=== PATIENT | male | born 1975 | race Caucasian/White ===

== ENCOUNTER 2018-12-01 16:37 | Emergency (ER) | payer OTHER ==
[~2018-12-01] VITALS: Ht 157.5 cm; Wt 84.8 kg
[2018-12-01 16:47] VITALS: BP_SYST 150
--- NOTE | 2018-12-01 16:55 | NUR ---
Patient to ER bed 03 to gown for evaluation. Side rails up.
--- NOTE | 2018-12-01 16:57 | NUR ---
Pt brought by self , A&Ox4, pt presents to ER with LAC on L upper leg after he cut it with a sheet metal, afebrile, bleeding controlled at this time, pt unable to remember last Tetanus shot administration.
--- NOTE | 2018-12-01 17:03 | NUR ---
SACHIN Lerner examining patient.
[2018-12-01] MEDS ORDERED: IBUPROFEN 600 MG TABLET PO ONE (17:15)
[2018-12-01] MEDS ORDERED: LIDOCAINE/EPI 2% 1:100000 20 ML VIAL INJ ONE (17:15)
[2018-12-01] MEDS ORDERED: BACITRACIN 1 GM OINT TP ONE (17:15)
[2018-12-01] MEDS ORDERED: DIPH-TET-PERTUS Vaccine 0.5 ML VIAL (ADACEL) I.M. ONE (17:15)
--- NOTE | 2018-12-01 17:55 | NUR ---
Patient has a laceration to left lower anterior leg. [employer]EE[employer] HEL[employer] Eduarda applied sutures using sterile technique. Edges well approximated. Dressing applied to site. No bleeding noted. Pt tolerated well.
[2018-12-01 18:27] VITALS: BP_SYST 148
--- NOTE | 2018-12-01 18:28 | NUR ---
Patient given written and verbal discharge instructions and verbalizes understanding. ER MD discussed with patient the results and treatment provided. Patient in stable condition. ID arm band removed. Rx of Keflex, Ibuprofen, Bacitracin given. Patient educated on pain management and to follow up with PMD. Pain Scale 3/10 tolerable for patient . Opportunity for questions provided and answered. Medication side effect fact sheet provided.
== END 2018-12-01 18:27 | disposition home or self-care (01) ==
LOC: SED 16:37
DX: S81.812A Laceration without foreign body, left lower leg, initial encounter (principal); F17.210 Nicotine dependence, cigarettes, uncomplicated; R03.0 Elevated blood-pressure reading, without diagnosis of hypertension; W45.8XXA Other foreign body or object entering through skin, initial encounter; Y93.89 Activity, other specified; Y92.69 Other specified industrial and construction area as the place of occurrence of the external cause; Y99.0 Civilian activity done for income or pay
CPT/HCPCS: 73590-TC; 90715; 99283

== ENCOUNTER 2018-12-03 09:53 | Emergency (ER) | payer OTHER ==
[~2018-12-03] VITALS: Ht 157.5 cm; Wt 83.9 kg
[2018-12-03 09:53] VITALS: BP_SYST 137
--- NOTE | 2018-12-03 09:53 | NUR ---
BROUGHT BACK TO BED #5 AND TRIAGED.REPORT GIVEN TO DARLENE
--- NOTE | 2018-12-03 10:05 | NUR ---
Patient presented to ER with wound check. Patient states he was seen here [facility] ER saturday for a left leg laceration. Patient A&Ox4, ambulatory with crutches, denies N/V/D, pain 05/18
--- NOTE | 2018-12-03 10:30 | NUR ---
ER Dr. Gandhi at bedside examining patient.
--- NOTE | 2018-12-03 10:34 | NUR ---
Applied bacitracin to suture site. Site measures approximately 3 cm . Telfa dressing applied secured with coban
[2018-12-03 10:40] VITALS: BP_SYST 137
--- NOTE | 2018-12-03 10:40 | NUR ---
Patient given written and verbal discharge instructions and verbalizes understanding. ER MD discussed with patient the results and treatment provided. Patient in stable condition. ID arm band removed. No Rx given. Patient educated on pain management and to follow up with PMD. Pain Scale 0/10. Opportunity for questions provided and answered. Medication side effect fact sheet provided.
== END 2018-12-03 10:40 | disposition home or self-care (01) ==
LOC: SED 09:53
DX: S81.812D Laceration without foreign body, left lower leg, subsequent encounter (principal); X58.XXXD Exposure to other specified factors, subsequent encounter
CPT/HCPCS: 99282; 99283

== ENCOUNTER 2018-12-07 14:39 | Emergency (ER) | payer OTHER ==
[~2018-12-07] VITALS: Ht 160 cm; Wt 83.9 kg
[2018-12-07 14:45] VITALS: BP_SYST 137
[2018-12-07 15:49] LABS: EOSINOPHILS # (AUTO) 0.3 K/uL (0.0-0.4); EOSINOPHILS % (AUTO) 4.3 % (0.0-4.0); HEMATOCRIT 41.6 % (36-54); HEMOGLOBIN 13.4 g/dL (14.0-18.0); LYMPHOCYTES % (AUTO) 26.1 % (20.5-51.5); MEAN CORPUSCULAR HEMOGLOBIN 27 pg (27-31); MEAN CORPUSCULAR HGB CONC 32 % (32-36); MEAN CORPUSCULAR VOLUME 85 fL (79.0-98.0); MONOCYTES # (AUTO) 0.4 K/uL (0.0-1.0); MONOCYTES % (AUTO) 5.6 % (1.7-9.3); PLATELET COUNT (AUTO) 355 K/uL (130-430); RED BLOOD CELL COUNT(AUTO) 4.89 MIL/uL (4.2-6.2); RED CELL DISTRIBUTION WIDTH 17.4 % (9.0-15.0); WHITE BLOOD COUNT (AUTO) 7.6 K/uL (4.8-10.8)
[2018-12-07 16:09] LABS: ANION GAP 5 (5-15); BASOPHILS % (AUTO) 0.3 % (0.0-2.0); CALCIUM 9.1 mg/dL (8.4-11.0); CHLORIDE 106 mmol/L (98-107); CREATININE 0.86 mg/dL (0.55-1.30); GLUCOSE 83 mg/dL (70-99); NEUTROPHILS % (AUTO) 63.7 % (40.0-70.0); POTASSIUM 4.2 mmol/L (3.5-5.1); SODIUM SERUM 138 mmol/L (136-145); UREA NITROGEN, BLOOD 8 mg/dL (8-21)
[2018-12-07 16:10] LABS: NEUTROPHILS # (AUTO) 4.9 K/uL (1.8-7.7)
[2018-12-07 16:14] LABS: ALANINE AMINOTRANSFERASE 45 U/L (12-78); ALBUMIN 3.7 g/dL (3.4-4.8); ASPARTATE AMINOTRANSFERASE 26 U/L (10-37); C-REACTIVE PROTEIN QUANT < 0.2 mg/dL (0-0.5); TOTAL BILIRUBIN 0.3 mg/dL (0.0-1.0)
[2018-12-07 16:16] LABS: GFR AFRICAN AMERICAN 125 mL/min (>90)
[2018-12-07 16:42] VITALS: BP_SYST 128
== END 2018-12-07 16:42 | disposition home or self-care (01) ==
LOC: SED 14:39
DX: S81.812D Laceration without foreign body, left lower leg, subsequent encounter (principal); L08.89 Other specified local infections of the skin and subcutaneous tissue; R03.0 Elevated blood-pressure reading, without diagnosis of hypertension; X58.XXXD Exposure to other specified factors, subsequent encounter
CPT/HCPCS: 36415; 80053; 85025; 86140; 99283

== ENCOUNTER 2018-12-11 13:07 | Emergency (ER) | payer OTHER ==
[~2018-12-11] VITALS: Ht 157.5 cm; Wt 81.6 kg
[2018-12-11 13:17] VITALS: BP_SYST 152
[2018-12-11 14:20] VITALS: BP_SYST 152
== END 2018-12-11 14:19 | disposition home or self-care (01) ==
LOC: SED 13:07
DX: S81.812D Laceration without foreign body, left lower leg, subsequent encounter (principal); X58.XXXD Exposure to other specified factors, subsequent encounter
CPT/HCPCS: 99281

== ENCOUNTER 2019-03-08 11:08 | Emergency (ER) | payer OTHER ==
[~2019-03-08] VITALS: Ht 160 cm; Wt 81.6 kg
[2019-03-08 11:10] VITALS: BP_SYST 130
--- NOTE | 2019-03-08 11:10 | NUR ---
BROUGHT BACK TO BED #8 AND TRIAGED. REPORT GIVEN TO RABIA
--- NOTE | 2019-03-08 11:12 | NUR ---
PT STATES AFTER HEAVY DRINKING DURING HOLIDAYS, NOW WITH RIGHT LOWER QUAD PAIN AND DARK STOOLS. MINIMAL AMT OF BLOOD ON TISSUE.
--- NOTE | 2019-03-08 11:17 | NUR ---
DR LE AT BEDSIDE FOR EVALUATION
--- NOTE | 2019-03-08 11:26 | NUR ---
Patient given written and verbal discharge instructions and verbalizes understanding. ER MD discussed with patient the results and treatment provided. Patient in stable condition. ID arm band removed. Rx of PEPCID given. Patient educated on pain management and to follow up with PMD. Pain Scale 0/10. Opportunity for questions provided and answered. Medication side effect fact sheet provided.
== END 2019-03-08 11:25 | disposition home or self-care (01) ==
LOC: SED 11:08
DX: K29.20 Alcoholic gastritis without bleeding (principal); F10.10 Alcohol abuse, uncomplicated; Y90.9 Presence of alcohol in blood, level not specified
CPT/HCPCS: 99282